=== PATIENT | male | born 1965 | race Caucasian/White ===

== ENCOUNTER 2023-06-10 11:12 | Outpatient (CLI) | payer OTHER, SELFPAY ==
--- NOTE | 2023-06-10 11:31 | XR_ITS ---
WS: [id number] Cervical spine, 5 views standing including both obliques, 06/10/2023 Clinical Data: L ARM NUMBNESS TINGLING/CHRONIC NECK PAIN > 3 MONTHS Comparison: None. Findings: No compression fractures are seen. There are anterior osteophytes from C4-C7. There is deg enerative disc narrowing at C4-C5, C5-C6 and C6-C7. Oblique films show neural foraminal encroachment at C5-C6 and C6-C7. There is no prevertebral soft tissue swelling. The odontoid is unremarkable. The soft tissues of the neck and the lung apices are normal. Impression: 1. Osteoarthritis and degenerative disc narrowing from C4-C7. 2. Neural foraminal encroachment at C5-C6 and C6-C7 bilaterally.
== END 2023-06-10 11:13 | disposition home or self-care (01) ==
LOC: RAD 11:20
PROVIDERS: PCP Family Medicine; Visit Provider Family Medicine
DX: M47.812 Spondylosis without myelopathy or radiculopathy, cervical region (principal); M50.321 Other cervical disc degeneration at C4-C5 level; M48.02 Spinal stenosis, cervical region; R20.0 Anesthesia of skin; R20.2 Paresthesia of skin
CPT/HCPCS: 72050

== ENCOUNTER → 2023-06-23 14:09 | Outpatient (BNVA) | payer OTHER, SELFPAY | PROVIDERS: PCP Family Medicine; Referring Provider Family Medicine; Visit Provider Orthopaedic Surgery | DX: M54.2 Cervicalgia (principal) | CPT/HCPCS: 72040 ==

== ENCOUNTER 2023-06-29 11:56 | Outpatient (CLI) | payer OTHER, SELFPAY ==
--- NOTE | 2023-06-29 12:16 | MR_ITS ---
WS: [id number] MRI CERVICAL SPINE NONCONTRAST HISTORY: Numbness and tingling left arm COMPARISON: None available. Technique: Multiplanar, multisequence noncontrast imaging of the cervical spine. Mild straightening of the normal cervical lordosis. Disc spaces are mildly narrowed and desiccated. N o signal abnormality within the cord. Signal within the cervical cord is normal. Visualized posterior fossa is unremarkable. Craniocervical junction, C1 and C2 relationship, odontoid process and soft tissues are normal. C2-C3: Normal. C3-C4: Tiny central disc protrusion. No stenosis. C4-C5: Small central disc protrusion and facet arthritis. Disc osteophyte in the RIGHT foramen causin g mild foraminal stenosis. C5-C6: Osteophytic ridging and annular disc bulging and mild facet arthritis. Mild central with moder ate bilateral foraminal stenosis. C6-C7: Mild annular disc bulging and osteophytic ridging. Mild central and bilateral foraminal stenos is. C7-T1: No stenosis. Paraspinal soft tissue are normal. IMPRESSION: 1. Multilevel disc osteophyte disease contributing to central and foraminal stenoses. No severe sten osis. 2. Small central disc protrusions at C3-4 and C4-5. 3. C4-5: Mild RIGHT foraminal stenosis due to disc osteophyte disease. 4. C5-6: Mild central and moderate bilateral foraminal stenosis. 5. C6-7: Mild central and bilateral foraminal stenosis.
== END 2023-06-29 11:57 | disposition home or self-care (01) ==
LOC: RAD 11:58
PROVIDERS: PCP Family Medicine; Visit Provider Family Medicine
DX: M48.02 Spinal stenosis, cervical region (principal); M25.78 Osteophyte, vertebrae; R20.2 Paresthesia of skin; M54.2 Cervicalgia
CPT/HCPCS: 72141

== ENCOUNTER 2023-08-11 13:05 | Outpatient (RCR) | payer OTHER, SELFPAY | END 2023-09-02 23:59 | disposition home or self-care (01) | LOC: SPT 13:05 | PROVIDERS: PCP Family Medicine; Visit Provider Orthopaedic Surgery | DX: M54.2 Cervicalgia (principal); G89.29 Other chronic pain | CPT/HCPCS: 97012; 97140; 97161; 97530; G0283 ==

== ENCOUNTER 2023-09-03 06:00 | Outpatient (RCR) | payer OTHER, SELFPAY | END 2023-10-02 23:59 | disposition home or self-care (01) | LOC: SPT 06:00 | PROVIDERS: PCP Family Medicine; Visit Provider Orthopaedic Surgery | DX: M54.2 Cervicalgia (principal); G89.29 Other chronic pain | CPT/HCPCS: 97140; 97530; G0283 ==

== ENCOUNTER → 2023-12-14 10:49 | Outpatient (BNVA) | payer OTHER, SELFPAY | PROVIDERS: PCP Family Medicine; Visit Provider Internal Medicine | DX: E11.9 Type 2 diabetes mellitus without complications (principal) | CPT/HCPCS: 36415; 80053; 80061; 82044; 83036 ==

== ENCOUNTER 2024-03-13 08:12 | Outpatient (CLI) | payer OTHER, SELFPAY ==
[2024-03-13 09:05] LABS: Estmated Average Glucose 140; Hemoglobin A1C 6.5 % (4.0-6.0)
[2024-03-13 09:16] LABS: Alanine Aminotransferase 17 U/L (0-41); Albumin Level 4.4 g/dL (3.5-5.2); Alkaline Phosphatase 85 U/L (40-130); Anion Gap 13.5 (5-19); Aspartate Amino Transferase 18 U/L (0-40); Blood Urea Nitrogen 18 mg/dL (6-20); Calcium 9.8 mg/dL (8.5-10.5); Carbon Dioxide 26 mmol/L (22-29); Chloride 102 mmol/L (98-107); Chol HDL Ratio 3.07 mg/dL (1.0-5.00); Cholesterol 252 mg/dL (0-200); Globulin 2.6 g/dL (1.3-4.6); Glomerular Filtration Rate 98.9 mL/min (90-130); Glucose 112 mg/dL (65-115); HDL Cholesterol 82 mg/dL (60-100); LDL Cholesterol Calculated 156 mg/dL (50-129); Osmolality Calculated 287 mOsm/kg (285-295); Potassium 4.5 mmol/L (3.5-5.1); Sodium 137 mmol/L (136-145); Total Bilirubin 0.8 mg/dL (0.15-1.2); Triglycerides 68 mg/dL (0-150)
[2024-03-13 09:18] LABS: Creatinine Urine, Random 129 mg/dL (39-259); Microalbum Creatinine Ratio Ur 8 mg/dL (0-20); Microalbumin Random Urine 1 ug/dL (0-20)
== END 2024-03-13 08:13 | disposition home or self-care (01) ==
LOC: LAB 08:14
PROVIDERS: PCP Family Medicine; Visit Provider Internal Medicine
DX: E11.9 Type 2 diabetes mellitus without complications (principal)
CPT/HCPCS: 36415; 80053; 80061; 82044; 83036

== ENCOUNTER 2024-07-13 07:44 | Outpatient (CLI) | payer OTHER, SELFPAY ==
[2024-07-13 08:31] LABS: Estmated Average Glucose 134; Hemoglobin A1C 6.3 % (4.0-6.0)
[2024-07-13 08:37] LABS: Alanine Aminotransferase 15 U/L (0-41); Albumin Level 4.3 g/dL (3.5-5.2); Alkaline Phosphatase 84 U/L (40-130); Anion Gap 14.1 (5-19); Aspartate Amino Transferase 18 U/L (0-40); Blood Urea Nitrogen 16 mg/dL (8-23); Calcium 9.1 mg/dL (8.5-10.5); Carbon Dioxide 25 mmol/L (22-29); Chloride 102 mmol/L (98-107); Chol HDL Ratio 3.11 mg/dL (1.0-5.00); Cholesterol 246 mg/dL (0-200); Globulin 2.5 g/dL (1.3-4.6); Glomerular Filtration Rate 86.1 mL/min (90-130); Glucose 87 mg/dL (65-115); HDL Cholesterol 79 mg/dL (60-100); LDL Cholesterol Calculated 156 mg/dL (50-129); LDL HDL Ratio 1.97 RATIO (0.00-3.22); Osmolality Calculated 285 mOsm/kg (285-295); Potassium 4.1 mmol/L (3.5-5.1); Sodium 137 mmol/L (136-145); Total Bilirubin 0.6 mg/dL (0.15-1.2); Total Protein 6.8 g/dL (6.6-8.7); Triglycerides 57 mg/dL (0-150)
[2024-07-13 08:38] LABS: Creatinine Urine, Random 141 mg/dL (39-259); Microalbum Creatinine Ratio Ur 7 mg/dL (0-20); Microalbumin Random Urine 1 ug/dL (0-20)
== END 2024-07-13 07:45 | disposition home or self-care (01) ==
PROVIDERS: PCP Family Medicine; Visit Provider Internal Medicine
DX: E10.9 Type 1 diabetes mellitus without complications (principal); E78.2 Mixed hyperlipidemia
CPT/HCPCS: 36415; 80053; 80061; 82044; 83036

== ENCOUNTER → 2024-07-18 09:39 | Outpatient (BNVA) | payer OTHER, SELFPAY | PROVIDERS: PCP Family Medicine; Visit Provider Internal Medicine | DX: E55.9 Vitamin D deficiency, unspecified (principal); E10.9 Type 1 diabetes mellitus without complications; E78.2 Mixed hyperlipidemia | CPT/HCPCS: 82306 ==

== ENCOUNTER 2025-01-09 07:29 | Outpatient (CLI) | payer OTHER, SELFPAY ==
[2025-01-09 08:12] LABS: Creatinine Urine, Random 97 mg/dL (39-259); Microalbum Creatinine Ratio Ur 10 mg/dL (0-20)
[2025-01-09 08:22] LABS: Estmated Average Glucose 140; Hemoglobin A1C 6.5 % (4.0-6.0)
[2025-01-09 08:23] LABS: Alanine Aminotransferase 16 U/L (0-41); Albumin Level 4.3 g/dL (3.5-5.2); Alkaline Phosphatase 75 U/L (40-130); Anion Gap 16.1 (5-19); Aspartate Amino Transferase 23 U/L (0-40); Blood Urea Nitrogen 16 mg/dL (8-23); Calcium 9.4 mg/dL (8.5-10.5); Carbon Dioxide 26 mmol/L (22-29); Chloride 101 mmol/L (98-107); Cholesterol 223 mg/dL (0-200); Globulin 2.8 g/dL (1.3-4.6); Glucose 130 mg/dL (65-115); HDL Cholesterol 98 mg/dL (60-100); Osmolality Calculated 291 mOsm/kg (285-295); Potassium 4.1 mmol/L (3.5-5.1); Sodium 139 mmol/L (136-145); Total Protein 7.1 g/dL (6.6-8.7); Triglycerides 49 mg/dL (0-150)
== END 2025-01-09 07:30 | disposition home or self-care (01) ==
PROVIDERS: PCP Family Medicine; Visit Provider Internal Medicine
DX: E55.9 Vitamin D deficiency, unspecified (principal); E10.9 Type 1 diabetes mellitus without complications; E78.2 Mixed hyperlipidemia
CPT/HCPCS: 36415; 80053; 80061; 82044; 82306; 83036